=== PATIENT | female | born 1950 | race Caucasian/White ===

== ENCOUNTER → 2017-10-20 | Outpatient (CLI) | payer MEDICARE, OTHER | LOC: WI 13:49 | PROVIDERS: ATTEND Specialist | DX: Z12.31 Encounter for screening mammogram for malignant neoplasm of breast (principal) | CPT/HCPCS: 77063; 77067 ==

== ENCOUNTER 2017-10-31 00:16 | Emergency (ER) | payer MEDICARE, OTHER ==
[2017-10-31] MEDS ORDERED: ASPIRIN 81 MG TABLET, CHEWABLE PO ONE (02:04)
--- NOTE | 2017-10-31 02:43 | ER Document Report ---
ED Medical Screen (RME) - General Chief Complaint: Chest Pain Stated Complaint: CHEST PAIN Time Seen by Provider: 10/31/17 02:41 Mode of Arrival: Ambulatory Information source: Patient Notes: Patient presents complaining of left-sided chest pressure that radiates through to her back into her left shoulder area that started this evening around 6 PM. Patient states pain is been constant. Patient does complain of some nausea. Patient denies any vomiting, diarrhea, or cough. Patient denies any shortness of breath. hx: Hypothyroid, GERD, hysterectomy, cholecystectomy I have greeted and performed a rapid initial assessment of this patient. A comprehensive ED assessment and evaluation of the patient, analysis of test results and completion of the medical decision making process will be conducted by additional ED providers. TRAVEL OUTSIDE OF THE [place] IN LAST 30 DAYS: No - Related Data Allergies/Adverse Reactions: No Known Allergies Allergy (Unverified 10/31/17 02:42) Past Medical History Renal/ Medical History: Denies: Hx Peritoneal Dialysis GI Medical History: Reports: Hx Gastroesophageal Reflux Disease Past Surgical History: Reports: Hx Cholecystectomy, Hx Hysterectomy, Hx Tonsillectomy Physical Exam - Vital signs Vitals: Temp Pulse Resp BP Pulse Ox 98.1 F 73 17 145/73 H 97 10/31/17 01:07 10/31/17 01:07 10/31/17 01:07 10/31/17 01:07 10/31/17 01:07 - Cardiovascular Rhythm: Regular Heart sounds: S1 appreciated, S2 appreciated Murmur: No Course - Vital Signs Vital signs: Temp Pulse Resp BP Pulse Ox 98.1 F 73 17 145/73 H 97 10/31/17 01:07 10/31/17 01:07 10/31/17 01:07 10/31/17 01:07 10/31/17 01:07
[2017-10-31 03:38] LABS: INTERNATIONAL RATION (INR) 0.83
[2017-10-31 03:41] LABS: ABSOLUTE BASOPHILS # (AUTO) 0.1 10^3/uL (0.0-0.2); ABSOLUTE EOSINOPHILS # (AUTO) 0.1 10^3/uL (0.0-0.6); ABSOLUTE LYMPHOCYTES (AUTO) 1.7 10^3/uL (0.5-4.7); ABSOLUTE MONOCYTES (AUTO) 0.5 10^3/uL (0.1-1.4); ABSOLUTE NEUT (AUTO) 6.6 10^3/uL (1.7-8.2); BASOPHILS % (AUTO) 0.8 % (0-2); EOSINOPHILS % (AUTO) 1.3 % (0-6); HEMATOCRIT 43.6 % (36.0-47.0); HEMOGLOBIN 14.8 g/dL (12.0-15.5); LYMPHOCYTES % (AUTO) 19.1 % (13-45); MEAN CORPUSCULAR HGB CONC 33.9 g/dL (32.0-36.0); MEAN CORPUSCULAR VOLUME 86 fl (80-97); MONOCYTES % (AUTO) 5.9 % (3-13); PLATELET COUNT 413 10^3/uL (150-450); RED CELL DISTRIBUTION WIDTH 13.4 % (11.5-14.0); SEGMENTED NEUTROPHILS % (AUTO) 72.9 % (42-78); TOTAL CELLS COUNTED % (AUTO) 100 %
[2017-10-31 03:48] LABS: ALANINE AMINOTRANSFERASE 27 U/L (9-52); ALBUMIN 4.6 g/dL (3.5-5.0); ALKALINE PHOSPHATASE 87 U/L (38-126); ANION GAP 12 (5-19); ASPARTATE AMINO TRANSFERASE 15 U/L (14-36); BILIRUBIN,DIRECT 0.2 mg/dL (0.0-0.4); BILIRUBIN,TOTAL 0.5 mg/dL (0.2-1.3); BLOOD UREA NITROGEN 21 mg/dL (7-20); CALCIUM 11.7 mg/dL (8.4-10.2); CARBON DIOXIDE 27 mmol/L (22-30); CHLORIDE 103 mmol/L (98-107); CREATINE KINASE 62 U/L (30-135); GLUCOSE 115 mg/dL (75-110); LIPASE 360.1 U/L (23-300); POTASSIUM 4.6 mmol/L (3.6-5.0); SODIUM 141.9 mmol/L (137-145); TOTAL PROTEIN 7.8 g/dL (6.3-8.2)
[2017-10-31 03:59] LABS: CREATINE KINASE MB 1.33 ng/mL (<4.55)
[2017-10-31 04:00] LABS: TROPONIN I < 0.012 ng/mL
--- NOTE | 2017-10-31 04:08 | RADIOLOGY REPORT (SQ) ---
EXAM DESCRIPTION: CHEST PA/LAT CLINICAL HISTORY: cp COMPARISON: None. FINDINGS: Frontal and lateral views of the chest. The cardiomediastinal silhouette has normal size and contour. No consolidation, pneumothorax, or pleural effusion. No acute osseous abnormality. Prior cholecystectomy. Normal basilar subsegmental atelectasis. IMPRESSION: 1. No acute pulmonary process identified.
[2017-10-31] MEDS ORDERED: LIDOCAINE 2% VISCOUS SOLN 20 ML UDCUP PO ONE (05:01)
[2017-10-31] MEDS ORDERED: MAG HYDROX/AL HYDROX/SIMETH SUSP 30 ML UDCUP PO ONE (05:01)
[2017-10-31] MEDS ORDERED: METOCLOPRAMIDE HCL ORAL SOLN 10 MG/10 ML UDCUP PO ONE (05:01)
--- NOTE | 2017-10-31 05:38 | ER Document Report ---
ED General - General Chief Complaint: Chest Pain Stated Complaint: CHEST PAIN Time Seen by Provider: 10/31/17 02:41 Mode of Arrival: Ambulatory TRAVEL OUTSIDE OF THE [place] IN LAST 30 DAYS: No - HPI Patient complains to provider of: Chest pain Notes: Patient coming for chest pain chest pain ongoing since 7:00 last night. Patient states also has a history of GERD. Patient states chest pain going up into her chest burning sensation. Patient denies any fevers chills nausea vomiting. Patient denies any recent travel. Patient resting comfortably upon my evaluation. - Related Data Allergies/Adverse Reactions: No Known Allergies Allergy (Unverified 10/31/17 02:42) Past Medical History - General Information source: Patient - Social History Smoking Status: Never Smoker Family History: Reviewed & Not Pertinent Patient has suicidal ideation: No Patient has homicidal ideation: No Renal/ Medical History: Denies: Hx Peritoneal Dialysis GI Medical History: Reports: Hx Gastroesophageal Reflux Disease Past Surgical History: Reports: Hx Cholecystectomy, Hx Hysterectomy, Hx Tonsillectomy Review of Systems - Review of Systems Constitutional: No symptoms reported EENT: No symptoms reported Cardiovascular: Chest pain Respiratory: No symptoms reported Gastrointestinal: No symptoms reported Genitourinary: No symptoms reported Female Genitourinary: No symptoms reported Musculoskeletal: No symptoms reported Skin: No symptoms reported Hematologic/Lymphatic: No symptoms reported Neurological/Psychological: No symptoms reported Physical Exam - Vital signs Vitals: Temp Pulse Resp BP Pulse Ox 98.1 F 73 17 145/73 H 97 10/31/17 01:07 10/31/17 01:07 10/31/17 01:07 10/31/17 01:07 10/31/17 01:07 Interpretation: Normal - General General appearance: Appears well, Alert - HEENT Head: Normocephalic, Atraumatic Eyes: Normal Pupils: PERRL - Respiratory Respiratory status: No respiratory distress Chest status: Nontender Breath sounds: Normal Chest palpation: Normal - Cardiovascular Rhythm: Regular Heart sounds: Normal auscultation Murmur: No - Abdominal Inspection: Normal Distension: No distension Bowel sounds: Normal Tenderness: Nontender Organomegaly: No organomegaly - Back Back: Normal, Nontender - Extremities General upper extremity: Normal inspection, Nontender, Normal color, Normal ROM , Normal temperature General lower extremity: Normal inspection, Nontender, Normal color, Normal ROM , Normal temperature, Normal weight bearing. No: Ajith's sign - Neurological Neuro grossly intact: Yes Cognition: Normal Orientation: AAOx4 Antoinette Coma Scale Eye Opening: Spontaneous Antoinette Coma Scale Verbal: Oriented Sylvester Coma Scale Motor: Obeys Commands Sylvester Coma Scale Total: 15 Speech: Normal Motor strength normal: LUE, RUE, LLE, RLE Sensory: Normal - Psychological Associated symptoms: Normal affect, Normal mood - Skin Skin Temperature: Warm Skin Moisture: Dry Skin Color: Normal Course - Re-evaluation Re-evalutation: 10/31/17 05:32 The patient has atypical chest pain as the patient's chest pain is not suggestive of pulmonary embolus, cardiac ischemia, aortic dissection, or other serious etiology. Given the extremely low risk of these diagnoses further testing and evaluation for these possibilities does not appear to be indicated at this time. The patient has been instructed to return if the symptoms worsen or change in any way. Patient's chest pain resolved with a GI cocktail. EKG and troponin are negative. Heart score low patient will be discharged home - Vital Signs Vital signs: Temp Pulse Resp BP Pulse Ox 98.1 F 73 16 134/70 H 99 10/31/17 01:07 10/31/17 01:07 10/31/17 05:01 10/31/17 05:01 10/31/17 05:01 - Laboratory Result Diagrams: 10/31/17 03:00 10/31/17 03:00 Laboratory results interpreted by me: 10/31/17 03:00 BUN 21 H Est GFR ( Amer) 55 L Est GFR (Non-Af Amer) 45 L Glucose 115 H Calcium 11.7 H Lipase 360.1 H Discharge - Discharge Clinical Impression: Chest pain, GERD (gastroesophageal reflux disease) Condition: Good Disposition: HOME, SELF-CARE Instructions: Chest Wall Pain ([facility]), Chest Pain of Unclear Cause ([facility]), Reflux Disease (GERD) ([facility]) Additional Instructions: Your evaluation of chest pain today shows negative cardiac enzymes and a negative EKG and chest x-ray. With your pain getting better with the GI cocktail of the believe this more indigestion. Please increase her Protonix to twice a day. Also take the Reglan and Carafate as prescribed. Return to the ER if symptoms worsen. Prescriptions: Metoclopramide HCl [Reglan] 5 mg PO Q6 #30 tablet Sucralfate [Carafate 1 gm Tablet] 1 gm PO ACHS #120 tablet Forms: Return to Work
[2017-10-31 05:43] VITALS: BP 134/70
--- NOTE | 2017-11-01 11:58 | EKG REPORT ---
SEVERITY:- NORMAL ECG - SINUS RHYTHM : Confirmed by: Mariely Kinsey MD 01-Nov-2017 11:57:22
== END 2017-10-31 05:58 | disposition home or self-care (01) ==
LOC: ER 00:16
DX: K21.9 Gastro-esophageal reflux disease without esophagitis (principal); R07.89 Other chest pain
CPT/HCPCS: 93005; 99285; 36415; 82553; 82550; 83690; 85025; 85610; 80053; 84484; 71046; 93010; A9270 ×2; J3490

== ENCOUNTER → 2018-01-29 | Outpatient (CLI) | payer MEDICARE, OTHER ==
[2018-01-29 09:14] LABS: CHOLESTEROL 266.17 mg/dL (0-200); TRIGLYCERIDES 206 mg/dL (<150)
[2018-01-29 09:25] LABS: DIRECT LDL 144 mg/dL (<100)
[2018-01-29 09:27] LABS: VLDL CHOLESTEROL 41.2 mg/dL (10-31)
== END ==
LOC: OD 07:44
PROVIDERS: ATTEND Internal Medicine
DX: E78.5 Hyperlipidemia, unspecified (principal)
CPT/HCPCS: 36415; 80061

== ENCOUNTER → 2018-03-06 | Outpatient (CLI) | payer MEDICARE, OTHER ==
[2018-03-06 10:09] LABS: BLOOD UREA NITROGEN 16 mg/dL (7-20)
== END ==
LOC: OD 08:30
PROVIDERS: ATTEND Orthopaedic Surgery
DX: M25.531 Pain in right wrist (principal)
CPT/HCPCS: 36415; 82565; 84520

== ENCOUNTER → 2018-03-12 | Day surgery (SDC) | payer MEDICARE, OTHER ==
--- NOTE | 2018-03-12 14:56 | RADIOLOGY REPORT (SQ) ---
EXAM DESCRIPTION: ARTHRO WRIST INJECTION COMPLETE DATE/TIME: 03/12/2018 2:15 pm REASON FOR STUDY: PAIN IN RIGHT WRIST M25.531 PAIN IN RIGHT WRIST FINDINGS: Please see combined report for performance of procedure and radiologic supervision and int erpretation. IMPRESSION: Please see combined report for performance of procedure and radiologic supervision and i nterpretation. Reading location - IP/workstation name: CLINICAL TRIALS [email or web address]
--- NOTE | 2018-03-12 15:00 | RADIOLOGY REPORT (SQ) ---
EXAM DESCRIPTION: FLUORO/NEEDLE PLACEMENT COMPLETED DATE/TIME: 03/12/2018 2:15 pm REASON FOR STUDY: PAIN IN RIGHT WRIST M25.531 PAIN IN RIGHT WRIST COMPARISON: None. FLUOROSCOPY TIME: 0.3 minutes 1 images saved to PACS. LIMITATIONS: None. PROCEDURE: Procedure, risks, benefits and alternatives explained to patient who then gave written co nsent. The right wrist was marked and a time-out was called for correct marking verification. Radioc arpal site marked using fluoroscopic guidance. Wrist prepped and draped using sterile technique. Lo harper anesthesia achieved using 1% lidocaine injection. Hypodermic needle introduced into the joint sp lucius under direct fluoroscopic visualization. Non-ionic contrast instilled to confirm intra-articular position. Dilute gadolinium solution then injected. Needle removed and entry site covered with steri le bandage. No immediate complications noted. TECHNIQUE: Digital images acquired during fluoroscopy and stored on PACS. Patient immediately take n to the MR suite for additional imaging. INJECTION LOCATION: Dorsal CONTRAST TYPE AND AMOUNT: 2 mL ProHance solution IMPRESSION: SUCCESSFUL NEEDLE PLACEMENT AND INJECTION FOR right WRIST MR ARTHROGRAM. COMMENT: Quality ID #[id number]: Final reports for procedures using fluoroscopy that document radiation exp osure indices, or exposure time and number of fluorographic images (if radiation exposure indices are not available) TECHNICAL DOCUMENTATION: JOB ID: [id number] [employer]- All Rights Reserved Reading location - IP/workstation name: [email or web address]
--- NOTE | 2018-03-14 09:47 | RADIOLOGY REPORT (SQ) ---
EXAM DESCRIPTION: MRI RT UPPER JOINT WITH COMPLETED DATE/TIME: 03/12/2018 2:55 pm REASON FOR STUDY: PAIN IN RIGHT WRIST M25.531 PAIN IN RIGHT WRIST COMPARISON: None. TECHNIQUE: Right wrist post-arthrogram imaging includes T1 and T1 and T2 fat sat sequences. LIMITATIONS: None. FINDINGS: JOINT DISTENSION: Adequate. No loose bodies. BONE MARROW: Normal. CARPAL ALIGNMENT AND ARTICULATION: Normal. SCAPHOLUNATE LIGAMENT: Intact. LUNATO-TRIQUETRAL LIGAMENT: Intact. TFC COMPLEX: Intact. EXTRINSIC LIGAMENTS AND DISTAL RADIO-ULNAR JOINT: Normal alignment. Grossly intact ligaments. 1-6 EXTENSOR COMPARTMENTS: Mild dorsal soft tissue edema likely related to dorsal approach arthrograp hy. Tendons look intact. CARPAL TUNNEL AND MEDIAN NERVE: Normal. OTHER: No other significant finding. IMPRESSION: Generally unremarkable MR arthrography of the right wrist. Intrinsic ligaments intact. Normal carpal alignment. TECHNICAL DOCUMENTATION: JOB ID: [id number] [employer]- All Rights Reserved Reading location - IP/workstation name: [email or web address]
== END ==
LOC: RAD 13:34
PROVIDERS: ATTEND Orthopaedic Surgery
DX: M25.531 Pain in right wrist (principal)
CPT/HCPCS: 73222; 25246; 77002; A9576

== ENCOUNTER 2018-04-19 03:53 | Emergency (ER) | payer MEDICARE, OTHER ==
--- NOTE | 2018-04-19 04:53 | ER Document Report ---
ED Medical Screen (RME) - General Chief Complaint: Fall Stated Complaint: FALL/HEAD INJURY Time Seen by Provider: 04/19/18 04:31 Mode of Arrival: Ambulatory Information source: Patient Notes: Patient is a 67-year-old female who presents after syncopal episode. Patient reports that she got up out of bed early this morning and she reports that she was having some GI upset. Patient reports she went to the bathroom at which point she passed out striking her head and face. Patient denies any history of syncope. Patient is reporting generalized neck pain as well as left-sided jaw pain. Patient denies any vomiting after the fall. Patient's reports that when he heard the loud thud he immediately went to check on her and she was awake. Patient is unable to recall the exact events surrounding her syncopal episode. Patient has a medical history of vertigo, hypothyroidism, GERD and hyperlipidemia. Patient denies any dizziness prior to the syncopal episode. Exam: No tenderness to palpation to cervical spine, cervical collar is in place. Tenderness to palpation to left jaw. Patient alert, oriented 4. Lung sounds clear to auscultation bilaterally. I have greeted and performed a rapid initial assessment of this patient. A comprehensive ED assessment and evaluation of the patient, analysis of test results and completion of the medical decision making process will be conducted by additional ED providers. Dictation of this chart was performed using voice recognition software; therefore, there may be some unintended grammatical errors. TRAVEL OUTSIDE OF THE [place] IN LAST 30 DAYS: No - Related Data Allergies/Adverse Reactions: No Known Allergies Allergy (Unverified 10/31/17 02:42) Past Medical History Renal/ Medical History: Denies: Hx Peritoneal Dialysis GI Medical History: Reports: Hx Gastroesophageal Reflux Disease Past Surgical History: Reports: Hx Cholecystectomy, Hx Hysterectomy, Hx Tonsillectomy Physical Exam - Vital signs Vitals: Temp Pulse Resp BP Pulse Ox 97.6 F 87 16 146/64 H 100 04/19/18 04:10 04/19/18 04:10 04/19/18 04:10 04/19/18 04:10 04/19/18 04:10 Course - Vital Signs Vital signs: Temp Pulse Resp BP Pulse Ox 97.6 F 87 16 146/64 H 100 04/19/18 04:10 04/19/18 04:10 04/19/18 04:10 04/19/18 04:10 04/19/18 04:10 Doctor's Discharge - Discharge Referrals: SIA BIRCH MD [Primary Care Provider] - Follow up as needed
--- NOTE | 2018-04-19 05:44 | RADIOLOGY REPORT (SQ) ---
EXAM DESCRIPTION: CT HEAD WITHOUT IV CONTRAST COMPLETED DATE/TME: 04/19/2018 04:48 CLINICAL HISTORY: syncope COMPARISON: None available TECHNIQUE: Axial CT of the head obtained from the skull apex to the skull base without contrast. FINDINGS: No acute intracranial hemorrhage identified. No mass, mass effect, shift of the midline, abnormal extra-axial fluid collection or CT evidence of acute ischemic change identified. The ventricular system and sulcal spaces are mildly enlarged compatible with mild cerebral atrophy. Scattered areas of hypodensity throughout the supratentorial white matter are nonspecific and may be related to chronic small vessel ischemic change. The visualized paranasal sinuses and the mastoids are clear. No skull fracture identified. Visualized orbits and globes are unremarkable. Atherosclerotic calcification of the intracranial internal carotid arteries. DLP:1070.38 mGy-cm IMPRESSION: 1. No acute intracranial abnormality by CT criteria. This exam was performed according to our departmental dose-optimization program, which includes automated exposure control, adjustment of the mA and/or kV according to patient size and/or use of iterative reconstruction technique.
--- NOTE | 2018-04-19 05:46 | RADIOLOGY REPORT (SQ) ---
EXAM DESCRIPTION: CT CERVICAL SPINE WITHOUT IV CONTRAST COMPLETED DATE/TME: 04/19/2018 04:47 CLINICAL HISTORY: fall COMPARISON: None available TECHNIQUE: Axial CT of the cervical spine obtained without contrast. FINDINGS: Straightening of the cervical lordosis is likely secondary to patient positioning. The atlantoaxial, atlantodental, and occipitoatlantal intervals are preserved. No fracture identified. Vertebral body height preserved. Prevertebral soft tissues are unremarkable. Minimal endplate spondylosis. Intervertebral disc height preserved. Mild facet arthropathy. No definite central canal nor osseous neural foraminal narrowing. Spurring of the atlantodental articulation. Visualized skull base is intact. No fracture of the visualized facial bones. Visualized mastoid air cells and paranasal sinuses are well aerated. Visualized thyroid is unremarkable. No cervical lymphadenopathy. No pneumothorax in the visualized lung apices. Atherosclerotic vascular calcification of the carotid arteries. DLP: 310.18 mGy-cm IMPRESSION: 1. No acute fracture or subluxation of the cervical spine. This exam was performed according to our departmental dose-optimization program, which includes automated exposure control, adjustment of the mA and/or kV according to patient size and/or use of iterative reconstruction technique.
--- NOTE | 2018-04-19 05:48 | RADIOLOGY REPORT (SQ) ---
EXAM DESCRIPTION: CT MAXILLOFACIAL WITHOUT IV CONTRAST COMPLETED DATE/TME: 04/19/2018 04:48 CLINICAL HISTORY: left jaw pain post fall COMPARISON: None available TECHNIQUE: Axial CT of the facial bone obtained without contrast. Coronal and sagittal reformatted images available. DLP: 511.03 mGy-cm FINDINGS: Orbits: Orbital floors and martinez are intact. Intraorbital contents: The globes are intact. Extraocular muscles are symmetric. No intraconal fat stranding. Nasal bones: Intact. Maxilla: The maxillary hard palate is intact. Maxillary antral martinez are intact. Sinuses: Paranasal sinuses are well aerated. Zygomatic processes: Intact Pterygoid plates: Intact Mandible: Intact. No mandibular condylar dislocation. Skull base/cervical spine: Visualized portions of the skull base and cervical spine are intact. Visualized mastoid air cells are well aerated. Subcutaneous soft tissues: No abnormality noted in the subcutaneous soft tissues. Neck soft tissues: No definite abnormality involving the nasopharynx, oropharynx, or hypopharynx. Fossa of Rosenmuller are clear. Parotid glands and submandibular glands are unremarkable. No cervical lymphadenopathy. IMPRESSION: 1. No acute facial bone fracture identified. This exam was performed according to our departmental dose-optimization program, which includes automated exposure control, adjustment of the mA and/or kV according to patient size and/or use of iterative reconstruction technique.
[2018-04-19 06:13] LABS: ABSOLUTE BASOPHILS # (AUTO) 0.1 10^3/uL (0.0-0.2); ABSOLUTE MONOCYTES (AUTO) 0.6 10^3/uL (0.1-1.4); ABSOLUTE NEUT (AUTO) 10.7 10^3/uL (1.7-8.2); BASOPHILS % (AUTO) 0.5 % (0-2); EOSINOPHILS % (AUTO) 0.2 % (0-6); HEMATOCRIT 39.5 % (36.0-47.0); HEMOGLOBIN 13.4 g/dL (12.0-15.5); LYMPHOCYTES % (AUTO) 8.1 % (13-45); MEAN CORPUSCULAR VOLUME 85 fl (80-97); MONOCYTES % (AUTO) 5.1 % (3-13); PLATELET COUNT 371 10^3/uL (150-450); RED BLOOD COUNT 4.63 10^6/uL (3.72-5.28); RED CELL DISTRIBUTION WIDTH 13.8 % (11.5-14.0); SEGMENTED NEUTROPHILS % (AUTO) 86.1 % (42-78); TOTAL CELLS COUNTED % (AUTO) 100 %; WHITE BLOOD COUNT 12.4 10^3/uL (4.0-10.5)
[2018-04-19 06:35] LABS: ALANINE AMINOTRANSFERASE 18 U/L (9-52); ALBUMIN 4.3 g/dL (3.5-5.0); ALKALINE PHOSPHATASE 71 U/L (38-126); ANION GAP 11 (5-19); APPEARANCE,URINE SLIGHTLY-CLOUDY; ASPARTATE AMINO TRANSFERASE 27 U/L (14-36); BILIRUBIN,DIRECT 0.3 mg/dL (0.0-0.4); BILIRUBIN,TOTAL 0.6 mg/dL (0.2-1.3); BILIRUBIN,URINE NEGATIVE (NEGATIVE); BLOOD UREA NITROGEN 19 mg/dL (7-20); CALCIUM 9.3 mg/dL (8.4-10.2); CARBON DIOXIDE 26 mmol/L (22-30); CHLORIDE 110 mmol/L (98-107); COLOR,URINE YELLOW; CREATINE KINASE 259 U/L (30-135); GLUCOSE 113 mg/dL (75-110); GLUCOSE, URINE NEGATIVE (NEGATIVE); KETONES,URINE NEGATIVE (NEGATIVE); LEUKOCYTE ESTERASE,URINE MODERATE (NEGATIVE); NITRITE,URINE NEGATIVE (NEGATIVE); POTASSIUM 4.2 mmol/L (3.6-5.0); PROTEIN,URINE NEGATIVE (NEGATIVE); SODIUM 146.9 mmol/L (137-145); TOTAL PROTEIN 7.8 g/dL (6.3-8.2); URINE SPECIFIC GRAVITY 1.019; UROBILINOGEN,URINE NEGATIVE mg/dL (<2.0)
--- NOTE | 2018-04-19 06:40 | EKG REPORT ---
SEVERITY:- BORDERLINE ECG - SINUS RHYTHM BORDERLINE T ABNORMALITIES, ANT-LAT LEADS : Confirmed by: Mariely Kinsey MD 19-Apr-2018 06:40:11
[2018-04-19 06:46] LABS: CREATINE KINASE MB 4.02 ng/mL (<4.55)
[2018-04-19 06:49] LABS: TROPONIN I < 0.012 ng/mL
[2018-04-19] MEDS ORDERED: METHOCARBAMOL 750 MG TABLET PO ONE (06:54)
--- NOTE | 2018-04-19 06:54 | ER Document Report ---
ED General - General Mode of Arrival: Ambulatory Information source: Patient TRAVEL OUTSIDE OF THE [place] IN LAST 30 DAYS: No <ИВАН MONTGOMERY - Last Filed: 04/19/18 16:03> <ESTER CASTRO - Last Filed: 04/19/18 16:24> - General Chief Complaint: Fall Stated Complaint: FALL/HEAD INJURY Time Seen by Provider: 04/19/18 04:31 Notes: Patient is a 67 year old female with vertigo, hypothyroidism, GERD, hyperlipidemia presents to the emergency department complaining of a fall secondary to a sycopal episode with associated symptoms of left sided facial pain and right sided neck pain. Patient states she was having an upset stomach this morning, which is not abnormal to her, and she proceeded to go to the bathroom. Patient states she was sitting down when she passed out and hit her face on the bathtub. She states she initially had a nose bleed soon after the fall. Patient reports finding her awake soon after he heard a loud thud. Patient states she has previously had pre-syncopal symptoms during stomach discomfort. Patient denies vomiting, numbness, tingling or headache. Patient is currently taking Synthroid 75 mcg daily. (ИВАН MONTGOMERY) Patient has had multiple near syncopal episodes similar to this in the past but has never truly passed out. (ESTER CASTRO) - Related Data Allergies/Adverse Reactions: No Known Allergies Allergy (Unverified 10/31/17 02:42) Past Medical History - General Information source: Patient - Social History Smoking Status: Never Smoker Chew tobacco use (# tins/day): No Frequency of alcohol use: Occasional Drug Abuse: None Patient has suicidal ideation: No Patient has homicidal ideation: No GI Medical History: Reports: Hx Gastroesophageal Reflux Disease Past Surgical History: Reports: Hx Cholecystectomy, Hx Hysterectomy, Hx Tonsillectomy <ИВАН MONTGOMERY - Last Filed: 04/19/18 16:03> - Social History Family History: Reviewed & Not Pertinent <ESTER CASTRO - Last Filed: 04/19/18 16:24> Review of Systems - Review of Systems Constitutional: No symptoms reported EENT: No symptoms reported Cardiovascular: See HPI, Syncope Respiratory: No symptoms reported Gastrointestinal: No symptoms reported Genitourinary: No symptoms reported Female Genitourinary: No symptoms reported Musculoskeletal: See HPI Skin: No symptoms reported Hematologic/Lymphatic: No symptoms reported Neurological/Psychological: No symptoms reported <ИВАН MONTGOMERY - Last Filed: 04/19/18 16:03> Physical Exam <ИВАН MONTGOMERY - Last Filed: 04/19/18 16:03> <ESTER CASTRO - Last Filed: 04/19/18 16:24> - Vital signs Vitals: Temp Pulse Resp BP Pulse Ox 97.6 F 87 16 146/64 H 100 04/19/18 04:10 04/19/18 04:10 04/19/18 04:10 04/19/18 04:10 04/19/18 04:10 - Notes Notes: GENERAL: Alert, interacts well. No acute distress. HEAD: Normocephalic. Ecchymosis to the left chin. EYES: Pupils equal, round, and reactive to light. Extraocular movements intact. ENT: Oral mucosa moist, tongue midline. Abrasion on the left nostril, small amount of dried blood, no septal deviation. NECK: Full range of motion. Supple. Trachea midline. Tender to palpation along the right trapezius. Area of erythema on the dorsal aspect of neck. LUNGS: Clear to auscultation bilaterally, no wheezes, rales, or rhonchi. No respiratory distress. HEART: Regular rate and rhythm. No murmurs, gallops, or rubs. ABDOMEN: Soft, non-tender. Non-distended. Bowel sounds present in all 4 quadrants. EXTREMITIES: Moves all 4 extremities spontaneously. No edema, radial and dorsalis pedis pulses 2/4 bilaterally. No cyanosis. NEUROLOGICAL: Alert and oriented x3. Normal speech. Biceps and patellar DTRs 2 + bilaterally. PSYCH: Normal affect, normal mood. SKIN: Warm, dry, normal turgor. No rashes or lesions noted. (ИВАН MONTGOMERY) Lesions as noted under head exam and neck exam. (ESTER CASTRO) Course - Laboratory Result Diagrams: 04/19/18 05:54 04/19/18 05:54 <ИВАН MONTGOMERY - Last Filed: 04/19/18 16:03> - Laboratory Result Diagrams: 04/19/18 05:54 04/19/18 05:54 <ESTER CASTRO - Last Filed: 04/19/18 16:24> - Re-evaluation Re-evalutation: 04/19/18 07:25 CBC shows mild leukocytosis of 12.4 otherwise unremarkable, CMP grossly unremarkable only minimal abnormalities that do not have any impact on today's events, urinalysis shows moderate leukocyte esterase but there are 12 squamous epithelial cells, likely contaminated but it was sent for culture. Patient denies frequency or dysuria. CT scan of the head, facial bones and cervical spine are all negative for bleeding, fracture or dislocation. Patient states that her stomach discomfort is no different from her usual, abdominal exam is benign, there is no indication for any further imaging of the abdomen at this time. Patient cervical spine is now cleared, collar was removed , she has tenderness palpation along the right trapezius muscle. She will be started on Robaxin. Patient has a small well approximated non-gaping laceration to the inside of her upper lip that was noticed on secondary examination, no indication for approximation of this either. Discussed with patient that her symptoms are concerning for possible vasovagal syncope particularly given that they only tend to occur when she is having stomach discomfort or diarrhea. Encouraged patient to follow-up with cardiology should she noticed that she continues to have syncopal and near syncopal episodes. Patient is started on Robaxin and discharged home. (ESTER CASTRO) - Vital Signs Vital signs: Temp Pulse Resp BP Pulse Ox 98.0 F 78 18 132/79 H 96 04/19/18 07:55 04/19/18 07:55 04/19/18 07:55 04/19/18 07:55 04/19/18 07:55 - Laboratory Laboratory results interpreted by me: 04/19/18 04/19/18 04/19/18 05:54 05:54 05:54 WBC 12.4 H Seg Neutrophils % 86.1 H Lymphocytes % 8.1 L Absolute Neutrophils 10.7 H Sodium 146.9 H Chloride 110 H Est GFR (Non-Af Amer) 55 L Glucose 113 H Creatine Kinase 259 H Ur Leukocyte Esterase MODERATE H - EKG Interpretation by Me Additional EKG results interpreted by me: 04/19/18 07:26 EKG shows sinus rhythm at a rate of 77, normal axis, normal intervals, no ST segment elevations or depressions, there are T-wave inversions in lead III, T- wave flattening in lead V3 through V6 as well as aVL per my interpretation. ( ESTER CASTRO) Discharge <ULISESИВАН - Last Filed: 04/19/18 16:03> <ESTER CASTRO - Last Filed: 04/19/18 16:24> - Discharge Clinical Impression: Strain of cervical portion of right trapezius muscle Syncope Qualifiers: Syncope type: vasovagal syncope Qualified Code(s): R55 - Syncope and collapse Cervical strain, acute Qualifiers: Encounter type: initial encounter Qualified Code(s): S16.1XXA - Strain of muscle, fascia and tendon at neck level, initial encounter Facial contusion Qualifiers: Encounter type: initial encounter Qualified Code(s): S00.83XA - Contusion of other part of head, initial encounter Lip laceration Qualifiers: Encounter type: initial encounter Qualified Code(s): S01.511A - Laceration without foreign body of lip, initial encounter Condition: Stable Disposition: HOME, SELF-CARE Additional Instructions: Vasovagal Symptoms Your symptoms seem to be due to a fall in blood pressure, caused by the interaction of your nervous system with your circulatory system. This can result in abnormally slow pulse rate, faintness, abnormal sensations, low blood pressure, difficulty with vision, or fainting (syncope). Vasovagal symptoms may be brought on by emotional distress, pain, dehydration, bleeding, or medication effects. Often, no cause can be identified. Your exam has revealed no signs of a serious problem. Usually, no further tests are required. However, if further workup has been recommended it's important that you follow up as instructed. Should you feel lightheaded or "about to faint," you should sit or lie down as quickly as possible. The episode will usually pass. Recurring symptoms will require further evaluation to determine the cause. Call the physician if you develop severe prolonged dizziness, headache, chest pain, shortness of breath, or other new symptoms. Neck Injury (Cervical Strain) You have a neck strain. This is an injury to the muscles and ligaments in the neck. There is no evidence of a fracture of the neck bones. Also, no injury to the spinal cord or nerve roots was detected. Usually, stiffness and pain INCREASE for the first 24-48 hours after the injury. The pain will gradually resolve and the neck will become more mobile. Most patients are back at work or school within a few days. Typically, complete healing takes about two or three weeks. The usual initial treatment is rest and cold packs. A neck collar may be placed to keep the muscles of the neck at rest. Antiinflammatory and muscle relaxing medication are often used to reduce the spasm and irritation. You should call the doctor, or go to the hospital, if you develop numbness or weakness in any extremity, problems with your bladder or bowel, or pain radiating down the arms. Oral Laceration, Not Sutured The laceration in your mouth was not sutured because the physician felt it would heal well without it. Suturing does increase the risk of infection somewhat, as germs in the wound are trapped inside. Most cuts in the mouth heal quickly with no significant scar. The wound will appear white and rough tomorrow. This unusual appearance is normal for an oral laceration, and will persist until healing is complete. You should rest for 24 hours to minimize swelling. Avoid tart or spicy foods, or hard foods which might stick in the cut (like tortilla chips), for a few days. If any signs of infection occur (swelling, redness of the skin directly over the laceration area, increasing tenderness, tender lumps below the jaw or on the sides of the neck, or fever), see the doctor immediately. Prescriptions: Methocarbamol [Robaxin 750 mg Tablet] 750 mg PO ASDIR PRN #40 tablet PRN Reason: Referrals: [facility] MD [NO LOCAL MD] - Follow up as needed Scribe Attestation: 04/19/18 16:24 I personally performed the services described in the documentation, reviewed and edited the documentation which was dictated to the scribe in my presence, and it accurately records my words and actions. (ESTER CASTRO) Scribe Documentation - Scribe Written by Gordo:: Gordo Medina, 04/19/2018 07:21 acting as scribe for :: Bulmaro <ИВАН MONTGOMERY - Last Filed: 04/19/18 16:03>
[2018-04-19 08:08] VITALS: BP 132/79
== END 2018-04-19 07:55 | disposition home or self-care (01) ==
LOC: ER 03:53
DX: S16.1XXA Strain of muscle, fascia and tendon at neck level, initial encounter (principal); S29.012A Strain of muscle and tendon of back wall of thorax, initial encounter; S01.511A Laceration without foreign body of lip, initial encounter; W18.12XA Fall from or off toilet with subsequent striking against object, initial encounter; Y93.89 Activity, other specified; R55 Syncope and collapse; E03.9 Hypothyroidism, unspecified; Z79.899 Other long term (current) drug therapy; R51 Headache; M54.2 Cervicalgia; D72.829 Elevated white blood cell count, unspecified; R19.8 Other specified symptoms and signs involving the digestive system and abdomen
CPT/HCPCS: 93005; 99284; 36415; 82553; 82550; 85025; 80053; 81001; 84484; 70450; 70486; 72125; 93010; L0172; A9270; J3490

== ENCOUNTER → 2018-08-25 | Outpatient (CLI) | payer MEDICARE, OTHER ==
[2018-08-25 08:18] LABS: ABSOLUTE BASOPHILS # (AUTO) 0.1 10^3/uL (0.0-0.2); ABSOLUTE EOSINOPHILS # (AUTO) 0.2 10^3/uL (0.0-0.6); ABSOLUTE LYMPHOCYTES (AUTO) 1.5 10^3/uL (0.5-4.7); ABSOLUTE MONOCYTES (AUTO) 0.5 10^3/uL (0.1-1.4); ABSOLUTE NEUT (AUTO) 3.9 10^3/uL (1.7-8.2); BASOPHILS % (AUTO) 1.1 % (0-2); EOSINOPHILS % (AUTO) 2.8 % (0-6); HEMATOCRIT 40.2 % (36.0-47.0); HEMOGLOBIN 13.8 g/dL (12.0-15.5); LYMPHOCYTES % (AUTO) 24.7 % (13-45); MEAN CORPUSCULAR HEMOGLOBIN 29.2 pg (27.0-33.4); MEAN CORPUSCULAR HGB CONC 34.3 g/dL (32.0-36.0); MEAN CORPUSCULAR VOLUME 85 fl (80-97); PLATELET COUNT 369 10^3/uL (150-450); RED BLOOD COUNT 4.72 10^6/uL (3.72-5.28); RED CELL DISTRIBUTION WIDTH 13.8 % (11.5-14.0); SEGMENTED NEUTROPHILS % (AUTO) 63.4 % (42-78); TOTAL CELLS COUNTED % (AUTO) 100 %; WHITE BLOOD COUNT 6.1 10^3/uL (4.0-10.5)
[2018-08-25 08:38] LABS: ALANINE AMINOTRANSFERASE 12 U/L (9-52); ALBUMIN 4.2 g/dL (3.5-5.0); ALKALINE PHOSPHATASE 69 U/L (38-126); ANION GAP 11 (5-19); ASPARTATE AMINO TRANSFERASE 16 U/L (14-36); BILIRUBIN,DIRECT 0.3 mg/dL (0.0-0.4); BILIRUBIN,TOTAL 0.5 mg/dL (0.2-1.3); BLOOD UREA NITROGEN 17 mg/dL (7-20); CALCIUM 9.7 mg/dL (8.4-10.2); CARBON DIOXIDE 27 mmol/L (22-30); CHLORIDE 106 mmol/L (98-107); CHOLESTEROL 218.58 mg/dL (0-200); GLUCOSE 118 mg/dL (75-110); POTASSIUM 4.6 mmol/L (3.6-5.0); SODIUM 143.9 mmol/L (137-145); TOTAL PROTEIN 7.3 g/dL (6.3-8.2); TRIGLYCERIDES 216 mg/dL (<150)
[2018-08-25 08:49] LABS: DIRECT LDL 136 mg/dL (<100)
[2018-08-25 08:52] LABS: VLDL CHOLESTEROL 43.2 mg/dL (10-31)
== END ==
LOC: OD 07:38
PROVIDERS: ATTEND Internal Medicine
DX: E03.9 Hypothyroidism, unspecified (principal); E78.5 Hyperlipidemia, unspecified; R53.83 Other fatigue
CPT/HCPCS: 36415; 80053; 80061; 84443; 85025

== ENCOUNTER → 2019-05-06 | Outpatient (CLI) | payer MEDICARE, OTHER ==
[2019-05-06 08:56] LABS: ALANINE AMINOTRANSFERASE 25 U/L (9-52); ALBUMIN 4.3 g/dL (3.5-5.0); ALKALINE PHOSPHATASE 72 U/L (38-126); ASPARTATE AMINO TRANSFERASE 20 U/L (14-36); BILIRUBIN,DIRECT 0.2 mg/dL (0.0-0.4); BILIRUBIN,TOTAL 0.5 mg/dL (0.2-1.3); CHOLESTEROL 175.34 mg/dL (0-200); TOTAL PROTEIN 6.9 g/dL (6.3-8.2); TRIGLYCERIDES 521 mg/dL (<150)
[2019-05-06 09:11] LABS: DIRECT LDL 70 mg/dL (<100)
== END ==
LOC: OD 07:18
PROVIDERS: ATTEND Internal Medicine
DX: E78.5 Hyperlipidemia, unspecified (principal)
CPT/HCPCS: 36415; 80061; 80076